=== PATIENT | male | born 1960 | race Caucasian/White ===

== ENCOUNTER 2022-06-07 07:19 | Observation (INO) ==
[2022-06-07] MEDS: Nitroglycerin 0.4 MG TAB.SUBL SL SCH ×2 (08:24→08:51)
[2022-06-07] MEDS ORDERED: 0.9 % Sodium Chloride 500 ML ONE (08:31)
[2022-06-07 08:36] LABS: Basophils # 0.1 K/mcL (0.0-0.2); Basophils % 0.5 %; Eosinophils # 0.4 K/mcL (0.0-0.6); Eosinophils % 3.5 %; Hematocrit 41.2 % (37.5-50.1); Hemoglobin 13.7 g/dL (12.9-16.9); Immature Granulocytes % 0.4 % (0-4); Lymphocytes # 2.1 K/mcL (0.6-4.6); Lymphocytes % 18.4 %; Mean Corpuscular HGB Conc 33.3 g/dL (31.6-35.5); Mean Corpuscular Hemoglobin 28.8 pg (28.0-33.3); Mean Corpuscular Volume 86.7 fL (83.0-100.0); Mean Platelet Volume 9.2 fL (9.4-12.4); Monocytes # 0.9 K/mcL (0.0-1.3); Monocytes % 7.5 %; Neutrophils # 7.9 K/mcL (1.6-8.9); Platelet Count 374 K/mcL (140-400); Red Blood Count 4.75 M/mcL (4.19-5.50); Segmented Neutrophils % 69.7 %; White Blood Count 11.3 K/mcL (4.3-11.1)
[2022-06-07] MEDS ORDERED: Iopamidol - 370 500 ML MLS IVP ONE (08:43)
[2022-06-07] MEDS ORDERED: 0.9 % Sodium Chloride 500 ML IVC ONE (08:49)
[2022-06-07 08:54] LABS: BUN/Creatinine Ratio 21 (6-26); Blood Urea Nitrogen 14 mg/dL (8-23); Calcium 8.8 mg/dL (8.6-10.3); Carbon Dioxide 25 mEq/L (23-29); Chloride 104 mEq/L (98-107); Glucose 133 mg/dL (70-105); Osmolality,Calculated 286 (280-300); Potassium 3.9 mEq/L (3.5-5.1); Sodium 137 mEq/L (136-145)
[2022-06-07 08:55] LABS: Troponin I < 0.03 ng/mL (< 0.04)
[2022-06-07] MEDS ORDERED: *HR* Atropine Sulfate 1 MG/10 ML SYRINGE IVP ONE (09:06)
[2022-06-07] MEDS ORDERED: Morphine Sulfate 2 MG/ML SYRINGE IVP ONE (10:00)
[2022-06-07] MEDS ORDERED: Naloxone 0.4 MG/ML INJ IVP PRN (12:42)
[2022-06-07] MEDS ORDERED: Ondansetron 4 MG/2 ML VIAL IVP PRN (12:42)
[2022-06-07] MEDS ORDERED: Melatonin 3 MG TABLET PO PRN (12:42)
[2022-06-07 13:12] LABS: C-Reactive Protein 19 mg/L (Less than 10)
[2022-06-07] MEDS ORDERED: *HR* HYDROcodone/Acet 7.5/325 mg TABLET PO ONE (21:55)
[2022-06-08 01:02] LABS: INR 1.1; Prothrombin Time 12.6 Seconds (9.4-12.1)
[2022-06-08 01:19] LABS: BUN/Creatinine Ratio 19 (6-26); Blood Urea Nitrogen 14 mg/dL (8-23); Calcium 8.5 mg/dL (8.6-10.3); Carbon Dioxide 25 mEq/L (23-29); Chloride 107 mEq/L (98-107); Glucose 152 mg/dL (70-105); Magnesium 1.8 mg/dL (1.6-2.6); Osmolality,Calculated 289 (280-300); Potassium 3.9 mEq/L (3.5-5.1); Sodium 138 mEq/L (136-145); Troponin I < 0.03 ng/mL (< 0.04)
[2022-06-08] MEDS: Acetaminophen 325 MG TABLET PO PRN ×2 (05:41→18:14)
[2022-06-08] MEDS: Aspirin Enteric Coated 81 MG Tablet PO SCH (09:28)
[2022-06-08] MEDS: Metoprolol XL (24 HR) Succ 25 MG TAB.ER.24H PO SCH (09:28)
[2022-06-08] MEDS ORDERED: *HR* Dextrose 50 % in Water (Syg) 50 ML SYRINGE IVP PRN (10:21)
[2022-06-08] MEDS ORDERED: Dextrose Gel 15 GM/37.5 ML TUBE PO PRN ×2 (10:21)
[2022-06-08] MEDS ORDERED: D5% in Water 1,000 ML IVC PRN (10:21)
[2022-06-08] MEDS: Insulin LISPRO 300 UNITS/3 ML VIAL SUBQ SCH ×2 (11:55→16:40)
[2022-06-08 22:49] VITALS: O2SAT 96
[2022-06-09] MEDS: Acetaminophen 325 MG TABLET PO PRN (00:59)
[2022-06-09 06:45] VITALS: BP 172/82; PULSE 87; TEMP 98.2
[2022-06-09] MEDS: Insulin LISPRO 300 UNITS/3 ML VIAL SUBQ SCH (07:33)
[2022-06-09] MEDS: Metoprolol XL (24 HR) Succ 25 MG TAB.ER.24H PO SCH (08:09)
[2022-06-09] MEDS: Aspirin Enteric Coated 81 MG Tablet PO SCH (08:09)
== END 2022-06-09 09:50 | disposition home or self-care (01) ==
LOC: EMEROOARM 07:19 → 3BNU 07:19
PROVIDERS: ADMIT Internal Medicine; ATTEND Internal Medicine